=== PATIENT | female | born 1985 | race African-American/Black ===

== ENCOUNTER 2022-02-11 02:31 | Observation (INO) ==
[2022-02-11] MEDS ORDERED: ASPIRIN 325 MG TABLET PO STA (03:11)
[2022-02-11] MEDS ORDERED: ONDANSETRON 4 MG/2 ML VIAL IV STA ×2 (03:11→04:06)
[2022-02-11] MEDS ORDERED: KETOROLAC 30 MG/1 ML VIAL IV STA (03:11)
[2022-02-11] MEDS ORDERED: hydrALAZINE 20 MG/1 ML VIAL IV STA (03:11)
[2022-02-11 03:19] LABS: Basophils % 0.2 % (0.0-0.8); Eosinophils # 0.2 10*3/uL (0.0-0.87); Eosinophils % 1.9 % (0.00-10.9); Hematocrit 33.5 VOL% (35.7-47.0); Hemoglobin 10.2 GM/DL (12.0-16.0); Immature Granulocytes % 0.2 %; Immature Granulocytes Absolute 0.02 #; Lymphocytes # 3.3 10*3/uL (1.4-4.0); Lymphocytes % 36.5 % (21.3-54.2); Mean Corpuscular HGB Conc 30.4 GM/DL (32-36); Mean Corpuscular Volume 80.1 FL (87-102); Mean Platelet Volume 9.7 FL (9.6-12.0); Monocytes # 0.7 10*3/uL (0.11-0.8); Monocytes % 8.2 % (1.7-12.7); Platelet Count 380 T/CUMM (130-400); Red Blood Count 4.18 MC/CUMM (3.8-5.5); Red Cell Distribution Width 15.9 % (9.3-17.3); White Blood Count 8.9 T/CUMM (4-12)
[2022-02-11 03:41] LABS: Alanine Aminotransferase 45 U/L (13-56); Albumin 3.4 G/DL (3.4-5.0); Alkaline Phosphatase 106 U/L (45-117); Aspartate Amino Transferase 19 U/L (0-37); Bilirubin,Total < 0.39 MG/DL (0.20-1.00); Blood Urea Nitrogen 13 MG/DL (7-18); Calcium 8.9 MG/DL (8.5-10.1); Carbon Dioxide 24 MMOL/L (21-32); Chloride 112 MMOL/L (98-107); Glucose 122 MG/DL (74-106); Osmolality,Calculated 281.3 MOS/KG (273-304); Potassium 3.6 MMOL/L (3.5-5.1); Sodium 141 MMOL/L (136-145); Total Protein 7.2 G/DL (6.4-8.2)
[2022-02-11] MEDS ORDERED: ADENOSINE 6 MG/2 ML VIAL ONE ×3 (03:46→03:58)
[2022-02-11] MEDS ORDERED: DILTIAZEM 25 MG/5 ML VIAL IV ONE (03:52)
[2022-02-11] MEDS ORDERED: DILTIAZEM 50 MG/10 ML VIAL IV STA (03:54)
[2022-02-11] MEDS ORDERED: ADENOSINE 6 MG/2 ML VIAL IV STA ×3 (03:55→03:58)
[2022-02-11] MEDS ORDERED: METOPROLOL TARTRATE 5 MG/5 ML VIAL IV ONE (03:59)
[2022-02-11] MEDS ORDERED: MIDAZOLAM 10 MG/2 ML VIAL ONE (04:00)
[2022-02-11] MEDS ORDERED: METOPROLOL TARTRATE 5 MG/5 ML VIAL IV STA (04:00)
[2022-02-11] MEDS ORDERED: LORazepam 2 MG/1 ML VIAL ONE (04:05)
[2022-02-11] MEDS ORDERED: LORazepam 2 MG/1 ML VIAL IV STA (04:07)
[2022-02-11] MEDS ORDERED: ENOXAPARIN 80 MG/0.8 ML SYRINGE SUBCUT STA (04:09)
[2022-02-11 04:38] LABS: Free T4 (Free Thyroxine) 2.77 NG/DL (0.76-1.46); Thyroid Stimulating Hormone < 0.005 uIU/ml (0.358-3.74)
[2022-02-11] MEDS ORDERED: ONDANSETRON 4 MG/2 ML VIAL IV PRN (05:03)
[2022-02-11] MEDS ORDERED: ACETAMINOPHEN 325 MG TABLET PO PRN (05:03)
[2022-02-11] MEDS ORDERED: CLORAZEPATE 3.75 MG TABLET PO PRN (05:31)
[2022-02-11] MEDS ORDERED: carvediloL 3.125 MG TABLET PO SCH (09:00)
[2022-02-11] MEDS: methIMAzole 5 MG TABLET PO SCH (10:03)
[2022-02-11] MEDS: hydroCHLOROthiazide 25 MG TABLET PO SCH (10:03)
[2022-02-11] MEDS: amLODIPine 10 MG TABLET PO SCH (10:04)
[2022-02-11] MEDS ORDERED: INFLUENZA VIRUS VACCINE 0.5 ML SYRINGE IM ONE (10:35)
[2022-02-11] MEDS: METOPROLOL SUCCINATE XL 50 MG TABLET PO SCH (17:13)
[2022-02-12 06:28] LABS: Risk Ratio 2.9; VLDL Cholesterol 8.2 MG/DL
[2022-02-12] MEDS: methIMAzole 5 MG TABLET PO SCH (08:24)
[2022-02-12] MEDS: hydroCHLOROthiazide 25 MG TABLET PO SCH (08:24)
[2022-02-12] MEDS: METOPROLOL SUCCINATE XL 50 MG TABLET PO SCH (08:25)
[2022-02-12] MEDS: amLODIPine 10 MG TABLET PO SCH (08:25)
[2022-02-12] MEDS ORDERED: ASPIRIN EC 325 MG TABLET PO SCH (09:00)
[2022-02-12] MEDS ORDERED: ENOXAPARIN 40 MG/0.4 ML SYRINGE SUBCUT SCH (09:00)
[2022-02-12 12:06] VITALS: BP 130/84
== END 2022-02-12 14:13 | disposition home or self-care (01) ==
LOC: N.ED 02:31 → N.EDINP 02:31 → N.TELES 08:16
PROVIDERS: ADMIT Internal Medicine; ATTEND Internal Medicine